=== PATIENT | male | born 1945 | race Caucasian/White ===

== ENCOUNTER 2022-03-22 08:52 | Outpatient (CLI) | payer OTHER | END 2022-03-22 08:53 | disposition home or self-care (01) | LOC: NM 08:52 | PROVIDERS: ATTEND Psychiatry & Neurology Neurology | DX: R26.9 Unspecified abnormalities of gait and mobility (principal); R41.89 Other symptoms and signs involving cognitive functions and awareness; G20 Parkinson's disease | CPT/HCPCS: 78803; A9584 ==

== ENCOUNTER 2025-02-16 08:28 | Day surgery (SDC) | payer MEDICARE, OTHER ==
[2025-02-15 10:53] VITALS: BMI 31.8
[~2025-02-16 08:28] MED LIST: EPINEPHrine 0.3 MG in Ophthalmic Irrigation Solution 500 ML IRR SCH
[2025-02-16] MEDS ORDERED: Cyclopentolate 1% Opth Drop 2 ML BOT ONE (09:55)
[2025-02-16 10:05] LABS: Hematocrit 42.7 % (42.0-52.0); Hemoglobin 14.0 g/dL (14.0-18.0); Mean Corpuscular Hemoglobin 29.0 pg (27.0-31.0); Mean Corpuscular Volume 88.6 fL (78.0-98.0); Platelet Count 224 10x3/uL (130-400); Red Blood Cell (RBC) Count 4.82 mill/uL (4.70-6.10); White Blood Cell (WBC) Count 6.41 10x3/uL (4.8-10.8)
[2025-02-16 10:55] LABS: Anion Gap 15 mmol/L (10-20); BUN (Urea Nitrogen) 14 mg/dL (8.4-25.7); Calc. Creatinine Clearance 82 mL/min (70-130); Calcium 9.3 mg/dL (7.8-10.44); Carbon Dioxide 21 mmol/L (23-31); Chloride 108 mmol/L (98-107); Glucose 125 mg/dL (83-110); Potassium 4.3 mmol/L (3.5-5.1); Sodium 140 mmol/L (136-145)
[2025-02-16] MEDS ORDERED: Lidocaine 4% PF 5 ML AMP ONE (11:29)
[2025-02-16] MEDS ORDERED: Maxitrol 0.1% Opth Oint 3.5 GM TUBE ONE (11:29)
[2025-02-16] MEDS ORDERED: Lidocaine 1% PF 5 ML VIAL ONE (11:29)
[2025-02-16] MEDS ORDERED: PROPOFOL 200 MG/20 ML VIAL ONE (11:29)
[2025-02-16] MEDS ORDERED: CEFAZOLIN 1 GM VIAL ONE (11:29)
== END 2025-02-16 13:18 | disposition home or self-care (01) ==
LOC: SDC 08:28
PROVIDERS: ATTEND Ophthalmology Retina Specialist
PROC: 08T53ZZ Resection of Left Vitreous, Percutaneous Approach (ICD-10-PCS; principal; 2025-02-16)
DX: H33.022 Retinal detachment with multiple breaks, left eye (principal); I10 Essential (primary) hypertension; E11.9 Type 2 diabetes mellitus without complications; E66.9 Obesity, unspecified; Z68.31 Body mass index [BMI] 31.0-31.9, adult; Z96.1 Presence of intraocular lens; Z98.41 Cataract extraction status, right eye; Z98.42 Cataract extraction status, left eye; Z90.49 Acquired absence of other specified parts of digestive tract; Z88.8 Allergy status to other drugs, medicaments and biological substances; Z91.013 Allergy to seafood
CPT/HCPCS: 67108; 80048; 85027; 93005; J0166; J0690; J2250; J2704; J3010; J3301; J3490; 93010

== ENCOUNTER → 2025-04-15 | Day surgery (SDC) | payer MEDICARE ==
[~2025-04-15] MED LIST changes: +CEFAZOLIN 1 GM VIAL ONE; +Cyclopentolate 1% Opth Drop 2 ML BOT ONE; +Lidocaine 1% PF 5 ML VIAL ONE; +Lidocaine 4% PF 5 ML AMP ONE; +Maxitrol 0.1% Opth Oint 3.5 GM TUBE ONE; +PROPOFOL 20 ML ONE; +hydrALAZINE 20 MG/ML VIAL ONE
== END ==
LOC: SDC 15:33
PROVIDERS: ATTEND Ophthalmology Retina Specialist
PROC: 08T53ZZ Resection of Left Vitreous, Percutaneous Approach (ICD-10-PCS; principal; 2025-04-15)
PROC: 08QF3ZZ Repair Left Retina, Percutaneous Approach (ICD-10-PCS; 2025-04-15)
DX: H33.012 Retinal detachment with single break, left eye (principal); E11.9 Type 2 diabetes mellitus without complications; Z91.013 Allergy to seafood; Z88.8 Allergy status to other drugs, medicaments and biological substances
CPT/HCPCS: 67025; 67108; 82962; J0166; J0360; J0690; J2704; J3010; J3301; J3490; 36416